=== PATIENT | female | born 1995 | race Caucasian/White ===

== ENCOUNTER 2024-10-16 18:45 | Emergency (ER) | payer MEDICAID ==
[~2024-10-16] VITALS: Ht 152.4 cm; Wt 49.6 kg
[2024-10-16 18:46] VITALS: O2SAT 100
[2024-10-16 18:52] VITALS: BP 111/51; PULSE 69; RESP 15; TEMP 98; O2SAT 100
[2024-10-16 19:13] LABS: CLARITY URINE CLEAR (CLEAR); COLOR URINE YELLOW (YELLOW); GLUCOSE URINE NEGATIVE (NEGATIVE); KETONES URINE NEGATIVE (NEGATIVE); LEUKOCYTE ESTERASE URINE NEGATIVE (NEGATIVE); NITRITE URINE NEGATIVE (NEGATIVE); OCCULT BLOOD URINE NEGATIVE (NEGATIVE); PH URINE 5.5 (4.5-8.0); PROTEIN URINE NEGATIVE (NEGATIVE); SPECIFIC GRAVITY URINE 1.008 (1.005-1.030); UROBILINOGEN URINE 0.2 E.U./dL (0.2-1.0)
[2024-10-16 19:27] LABS: BASOPHILS % 0.4 % (0.0-2.0); EOSINOPHILS % 2.6 % (0.0-5.0); HEMATOCRIT. 37.2 % (36.0-48.0); HEMOGLOBIN. 12.7 g/dL (12.0-16.0); LYMPHOCYTES % 22.9 % (20.0-50.0); MEAN CORPUSCULAR HEMOGLOBIN 30.1 pg (28.0-32.0); MEAN CORPUSCULAR HGB CONC 34.2 g/dL (31.0-37.0); MEAN CORPUSCULAR VOLUME 87.9 fL (81.0-99.0); MEAN PLATELET VOLUME 8.2 fl (7.4-10.4); MONOCYTES % 9.4 % (2.0-8.0); NEUTROPHILS % 64.7 % (40.0-76.0); PLATELET 306 x1000/uL (130-400); RED BLOOD CELL COUNT 4.23 mill/uL (4.2-5.4); RED CELL DISTRIBUTION WIDTH 13.6 % (11.6-14.6); WHITE BLOOD COUNT 10.8 x1000/uL (4.5-11.0)
[2024-10-16 19:30] LABS: CHLORIDE 102 mEq/L (98-107); POTASSIUM 3.9 mEq/L (3.5-5.1); SODIUM 133 mEq/L (136-145)
[2024-10-16 19:31] LABS: CARBON DIOXIDE 25 mEq/L (21-32)
[2024-10-16 19:32] LABS: CALCIUM 9.7 mg/dL (8.7-10.4)
[2024-10-16 19:35] LABS: HCG SCREEN POSITIVE
[2024-10-16 19:36] LABS: CREATININE 0.5 mg/dL (0.6-1.0); GLUCOSE 87 mg/dL (70-105); UREA NITROGEN BLOOD 6 mg/dL (9-23)
[2024-10-16] MEDS ORDERED: TOPUD PO (21:23)
[2024-10-16] MEDS ORDERED: DOXY1TAB3 MT (21:24)
[2024-10-16] MEDS ORDERED: PREN1COM12 MT (21:24)
== END 2024-10-16 21:15 | disposition home or self-care (01) ==
LOC: ER 18:45
DX: O26.891 Other specified pregnancy related conditions, first trimester (principal); Z98.890 Other specified postprocedural states; Z3A.00 Weeks of gestation of pregnancy not specified
CPT/HCPCS: 36415; 80048; 81003; 84703; 85025; 99283

== ENCOUNTER 2024-11-14 09:55 | Emergency (ER) | payer MEDICAID ==
[~2024-11-14] VITALS: Ht 149.9 cm; Wt 45.3 kg
[~2024-11-14 09:55] MED LIST: DOXY1TAB3 MT; PREN1COM12 MT; TOPUD PO
[2024-11-14 10:10] VITALS: O2SAT 100
[2024-11-14 11:25] LABS: CLARITY URINE CLEAR (CLEAR); COLOR URINE DARK YELLOW (YELLOW); GLUCOSE URINE NEGATIVE (NEGATIVE); KETONES URINE TRACE (NEGATIVE); LEUKOCYTE ESTERASE URINE NEGATIVE (NEGATIVE); NITRITE URINE POSITIVE (NEGATIVE); OCCULT BLOOD URINE NEGATIVE (NEGATIVE); PH URINE 5.5 (4.5-8.0); PROTEIN URINE NEGATIVE (NEGATIVE); UROBILINOGEN URINE 0.2 E.U./dL (0.2-1.0)
[2024-11-14] MEDS: METOCLOPRAMIDE HCL 10MG TABLET PO ONE (11:27)
[2024-11-14 11:36] LABS: BACTERIA URINE 2+; RBC URINE 0-2 /hpf (0-2); SQUAMOUS EPITHELIAL CELL URINE 2+ /lpf (RARE/1+); YEAST URINE NONE SEEN
[2024-11-14 11:41] LABS: BASOPHILS % 0.3 % (0.0-2.0); EOSINOPHILS % 0.9 % (0.0-5.0); HEMATOCRIT. 34.9 % (36.0-48.0); HEMOGLOBIN. 11.8 g/dL (12.0-16.0); LYMPHOCYTES % 17.7 % (20.0-50.0); MEAN CORPUSCULAR VOLUME 88.3 fL (81.0-99.0); MEAN PLATELET VOLUME 8.1 fl (7.4-10.4); MONOCYTES % 5.3 % (2.0-8.0); NEUTROPHILS % 75.8 % (40.0-76.0); PLATELET 270 x1000/uL (130-400); RED BLOOD CELL COUNT 3.95 mill/uL (4.2-5.4); WHITE BLOOD COUNT 10.8 x1000/uL (4.5-11.0)
[2024-11-14 11:45] LABS: CHLORIDE 103 mEq/L (98-107); POTASSIUM 3.6 mEq/L (3.5-5.1); SODIUM 135 mEq/L (136-145)
[2024-11-14 11:46] LABS: CALCIUM 9.6 mg/dL (8.7-10.4); CARBON DIOXIDE 24 mEq/L (21-32)
[2024-11-14 11:51] LABS: CREATININE 0.5 mg/dL (0.6-1.0); GLUCOSE 80 mg/dL (70-105); UREA NITROGEN BLOOD 6 mg/dL (9-23)
[2024-11-14 11:53] LABS: ALANINE AMINOTRANSFERASE 10 IU/L (10-49); ALBUMIN 4.3 g/dL (3.2-4.8); ASPARTATE AMINOTRANSFERASE 12 IU/L (<34); BILIRUBIN DIRECT 0.2 mg/dL (<=3.0); BILIRUBIN TOTAL 0.5 mg/dL (0.1-1.0); PROTEIN TOTAL 7.3 g/dL (6.0-8.3)
[2024-11-14 12:48] LABS: B-HCG QUANTITATIVE 254805 mIU/mL (<3)
[2024-11-14] MEDS: SODIUM CHLORIDE 0.9% 1,000 ML IV ONE (13:54)
[2024-11-14] MEDS ORDERED: CEPH250C2 MT (15:22)
[2024-11-14 15:46] VITALS: BP 102/56; PULSE 68; RESP 18; TEMP 36.78072; O2SAT 100
== END 2024-11-14 15:57 | disposition home or self-care (01) ==
LOC: ER 09:55
DX: O26.891 Other specified pregnancy related conditions, first trimester (principal); R10.84 Generalized abdominal pain; R11.2 Nausea with vomiting, unspecified; Z3A.08 8 weeks gestation of pregnancy
CPT/HCPCS: 99285; 76801; 80076; 80048; 81003; 81025; 84702; 85025; 36415; 76817; J8597; J7030